=== PATIENT | male | born 2000 | race Caucasian/White ===

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

== ENCOUNTER 2022-03-19 23:08 | Emergency (ER) | payer BC, OTHER ==
[2022-03-19 23:32] VITALS: PULSE 66; O2SAT 100
[2022-03-19] MEDS ORDERED: MOTRIN 600 MG PO ONE (23:40)
[2022-03-19] MEDS ORDERED: Augmentin 875-125 Tablet PO ONE (23:40)
[2022-03-19] MEDS ORDERED: Augmentin 875-125 Tablet ONE (23:42)
[2022-03-19] MEDS ORDERED: MOTRIN 600 MG ONE (23:42)
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
== END 2022-03-20 00:05 | disposition home or self-care (01) ==
LOC: ED 23:08
DX: A09 Infectious gastroenteritis and colitis, unspecified (principal); K57.90 Diverticulosis of intestine, part unspecified, without perforation or abscess without bleeding; R10.12 Left upper quadrant pain; R10.32 Left lower quadrant pain; Z79.899 Other long term (current) drug therapy; Z28.310 Unvaccinated for COVID-19
CPT/HCPCS: 99283; A9270-GY

== ENCOUNTER 2024-05-15 09:44 | Emergency (ER) | payer BC ==
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
[2024-05-15 10:00] VITALS: RESP 24; TEMP 97.9
[2024-05-15] MEDS ORDERED: Adacel Vial IM ONE (10:10)
[2024-05-15] MEDS ORDERED: KEFLEX 500 MG ONE (10:10)
[2024-05-15] MEDS: Adacel Vial IM ONE (10:13)
[2024-05-15] MEDS: KEFLEX 500 MG PO ONE (10:15)
--- NOTE | 2024-05-15 10:36 | XRAY ---
Indication: 5th finger laceration. Comparison: None 3 view right hand demonstrates bandage material base 5th finger. No other bony, articular, or soft tissue abnormalities.
[2024-05-15] MEDS ORDERED: NORCO 5/325 MG ONE (10:39)
[2024-05-15] MEDS: NORCO 5/325 MG PO ONE (10:40)
[2024-05-15 11:39] VITALS: BP 129/81; PULSE 78; O2SAT 97
== END 2024-05-15 12:09 | disposition home or self-care (01) ==
LOC: ED 09:44
DX: S61.214A Laceration without foreign body of right ring finger without damage to nail, initial encounter (principal); S61.216A Laceration without foreign body of right little finger without damage to nail, initial encounter
CPT/HCPCS: 73130; 90471; 90715; 99283; A9270-GY